=== PATIENT | male | born 1965 | race Caucasian/White ===

== ENCOUNTER 2019-01-12 11:33 | Inpatient (IN) | payer OTHER ==
[2019-01-12 14:38] VITALS: BMI 35.5
--- NOTE | 2019-01-12 16:13 | HP ---
CIWA Score - Admission Criteria [facility]ASAS Guidelines: Admission for Medically Managed Detox: Requires at least one of the followin. CIWA greater than 12 2. Seizures within the past 24 hours 3. Delirium tremens within the past 24 hours 4. Hallucinations within the past 24 hours 5. Acute intervention needed for co occurring medical disorder 6. Acute intervention needed for co occurring psychiatric disorder 7. Severe withdrawal that cannot be handled at a lower level of care (continued vomiting, continued diarrhea, abnormal vital signs) requiring intravenous medication and/or fluids 8. Admission ROS S - HPI Chief Complaint: Presents for rehab services for PCP dependence. Allergies/Adverse Reactions: Allergies Allergy/AdvReac Type Severity Reaction Status Date / Time No Known Allergies Allergy Verified 01/12/19 14:20 History of Present Illness: Patient presents for rehab for PCP dependence. Patient discharge from [facility] today after being admitted on 01/02/19 for hearing voices and suicidal/ homicidal ideation. Patient states he started smoking PCP at age 12. Patient states he smoked up to 3 cigarettes daily and last time he smoked was 01/01/19. Patient drinks socially but denies drinking on a daily basis. Patient reports history of seizures after taking haldol and thorazine and blackouts. Patient denies hx of overdose. PMH includes tobacco dependence and schizophrenia. Denies SI/HI at this time. Exam Limitations: No Limitations - Ebola screening Have you traveled outside of the country in the last 21 days: No (N) Have you had contact with anyone from an Ebola affected area: No Have you been sick,other than usual withdrawal symptoms: No Do you have a fever: No - Review of Systems Constitutional: Changes in sleep EENT: reports: No Symptoms Reported Respiratory: reports: No Symptoms reported Cardiac: reports: No Symptoms Reported GI: reports: No Symptoms Reported : reports: No Symptoms Reported Musculoskeletal: reports: No Symptoms Reported Integumentary: reports: No Symptoms Reported Neuro: reports: No Symptoms reported Endocrine: reports: No Symptoms Reported Hematology: reports: No Symptoms Reported Psychiatric: reports: Orientated x3, Anxious Patient History - Patient Medical History Hx Anemia: No Hx Asthma: No Hx Chronic Obstructive Pulmonary Disease (COPD): No Hx Cancer: No Hx Cardiac Disorders: No Hx Congestive Heart Failure: No Hx Hypertension: No Hx Hypercholesterolemia: No Hx Pacemaker: No HX Cerebrovascular Accident: No Hx Seizures: No Hx Dementia: No Hx Diabetes: No Hx Gastrointestinal Disorders: No Hx Liver Disease: No Hx Genitourinary Disorders: No Hx Sexually Transmitted Disorders: No Hx Renal Disease (ESRD): No Hx Thyroid Disease: No Hx Human Immunodeficiency Virus (HIV): No Hx Hepatitis C: No Hx Depression: No Hx Suicide Attempt: Yes (1995-jumped [place] bridge) Hx Bipolar Disorder: No Hx Schizophrenia: Yes - Patient Surgical History Past Surgical History: Yes Hx Neurologic Surgery: No Hx Cataract Extraction: No Hx Cardiac Surgery: No Hx Lung Surgery: No Hx Breast Surgery: No Hx Breast Biopsy: No Hx Abdominal Surgery: Yes (hernia surgery) Hx Appendectomy: No Hx Cholecystectomy: No Hx Genitourinary Surgery: No Hx Orthopedic Surgery: No Anesthesia Reaction: No - PPD History Previous Implant?: Yes Documented Results: Negative w/o proof PPD to be Administered?: Yes - Smoking Cessation Smoking history: Current every day smoker Have you smoked in the past 12 months: Yes Aproximately how many cigarettes per day: 40 Hx Chewing Tobacco Use: No Initiated information on smoking cessation: Yes 'Breaking Loose' booklet given: 01/12/19 - Substance & Tx. History Hx Alcohol Use: No Hx Substance Use: Yes Hx Substance Use Treatment: Yes (in [place], [place]) - Substances abused PCP Substance route: Smoking Frequency: Daily Amount used: 30/day Age of first use: 12 Date of last use: 12/12/18 Family Disease History - Family Disease History Family Disease History: Other: Mother (dementia, alive), Sister (mental illness) Admission Physical Exam [facility] - Vital Signs Vital Signs: Vital Signs - 24 hr 01/12/19 01/12/19 14:25 15:49 Temperature 97.7 F 97.7 F Pulse Rate 16 L 16 L Respiratory 16 16 Rate Blood Pressure 154/92 154/92 - Physical General Appearance: Yes: No Apparent Distress, Nourished, Appropriately Dressed , Anxious HEENTM: Yes: EOMI, Hearing grossly Normal, Normal ENT Inspection, Normocephalic , Normal Voice, ANDREA, Pharynx Normal Respiratory: Yes: Chest Non-Tender, Lungs Clear, Normal Breath Sounds, No Respiratory Distress, No Accessory Muscle Use Neck: Yes: No masses,lesions,Nodules, Supple, Trachea in good position Breast: Yes: Breast Exam Deferred Cardiology: Yes: Regular Rhythm, Regular Rate, S1, S2 Abdominal: Yes: Normal Bowel Sounds, Non Tender, Soft Genitourinary: Yes: Within Normal Limits Back: Yes: Normal Inspection Musculoskeletal: Yes: full range of Motion, Gait Steady Extremities: Yes: Normal Capillary Refill, Normal Inspection, Normal Range of Motion, Non-Tender Neurological: Yes: trade clerk II-XII NML intact, Fully Oriented, Alert, Motor Strength 5/5, Normal Mood/Affect, Other (anxious) Integumentary: Yes: Normal Color, Dry, Warm Lymphatic: Yes: Within Normal Limits Cleared for Admission [facility] - Detox or Rehab Claeared for Rehab Admission: Yes Breathalyzer - Breathalyzer Breathalyzer: 0.019 Urine Drug Screen - Test Device Lot number: [id number] Expiration date: 09/28/20 - Control Is test valid?: Yes - Results Drug screen NEGATIVE: No Urine drug screen results: THC-Marijuana Inpatient Rehab Admission - Rehab Decision to Admit Inpatient rehab admission?: Yes - Initial Determination Are CD services needed?: Yes Free of communicable disease: Yes Not in need of hospitalization: No - Rehab Admission Criteria Previous failed treatment: Yes Poor recovery environment: Yes Comorbidities: Yes Lacks judgement: No Patient is meeting Inpatient Rehab admission criteria:: Yes
[2019-01-12] MEDS ORDERED: IBUPROFEN 400 MG TABLET (FP) PO PRN (16:29)
[2019-01-12] MEDS ORDERED: LOPERAMIDE HCL 2 MG CAPSULE PO PRN (16:29)
[2019-01-12] MEDS ORDERED: MAGNESIUM HYDROX 2400MG/30ML ORAL SUSPENSION 30 ML CUP PO PRN (16:29)
[2019-01-12] MEDS ORDERED: MENTHOL/PHENOL 1 EACH UD MM PRN (16:29)
[2019-01-12] MEDS ORDERED: hydrOXYzine PAMOATE 50 MG CAPSULE (FP) PO PRN (16:29)
[2019-01-12] MEDS ORDERED: P-EPHED 60MG/TRIPROLIDI 2.5MG TABLET PO PRN (16:29)
[2019-01-12] MEDS ORDERED: NICOTINE POLACRILEX 2 MG GUM BC PRN (16:29)
[2019-01-12] MEDS ORDERED: MAGNESIUM CITRATE 300 ML BOTTLE PO PRN (16:29)
[2019-01-12] MEDS ORDERED: MAG HYDROX/AL HYDROX/SIMETH 30 ML UNIT-DOSE CUP PO PRN (16:29)
[2019-01-12] MEDS ORDERED: guaiFENesin 200 MG/10 ML 10 ML UNIT-DOSE CUPS PO PRN (16:29)
[2019-01-12] MEDS ORDERED: TUBERCULIN PPD 5 TU/0.1ML VIAL ID ONE (17:37)
[2019-01-12] MEDS ORDERED: MELATONIN 5 MG TABLETS PO PRN (22:00)
[2019-01-12] MEDS ORDERED: OLANZapine 5 MG TABLET PO ONE (22:00)
[2019-01-12] MEDS: THIAMINE HCL 100 MG TABLET (FP) PO SCH (22:09)
[2019-01-13] MEDS: PRENATAL VITAMINS W/ FOLIC ACID TABLET (FP) PO SCH (09:25)
[2019-01-13] MEDS: NICOTINE 21 MG/24 HOURS TOPICAL PATCH TD SCH (09:25)
--- NOTE | 2019-01-13 10:37 | CONSULT ---
[facility] Psychiatric Consult - Data Date of interview: 01/13/19 Admission source: [facility] Identifying data: First contact with [facility] for this 53 y/o AA male, discharged from [facility] and referred for rehabilitative care addressing cannabis (K2) dependence co-morbid with Schizoaffective Disorder. Direct admission to [address] Patient is , a father of six, homeless, unemployed and supported on SSI benefits. Substance Abuse History: Discussed in this session. Mr Farfan admits to using marijuana (K2), phencyclidine and alcohol for many years. He reports the consumption of two beers + smoking marihuana prior to his assessment at [facility]. Details in current [facility] report as follws : Smoking history: Current every day smoker. Have you smoked in the past 12 months: Yes. Aproximately how many cigarettes per day: 40. Hx Chewing Tobacco Use: No. Initiated information on smoking cessation: Yes. 'Breaking Loose' booklet given: 01/12/19. - Substance & Tx. History. Hx Alcohol Use: No. Hx Substance Use: Yes. Hx Substance Use Treatment: Yes (in [place], [place]). - Substances abused. PCP. Substance route: Smoking. Frequency: Daily. Amount used: 30/day. Age of first use: 12. Date of last use: 12/12/18 Medical History: Patient endorses hypertension and a history of bronchial asthma. Reports allergy to haloperidol and thorazine. Psychiatric History: Patient admits to a history of multiple psychiatric hospitalizations since the onset of emotional disturbances during his adolescence (age 14-15). Mr Farfan is known to [facility] (8- 10 admissions from 2014 to 2016). He has just returned from [place], [place] to visit his ailing mother and, on 01/08/19, as per self-report, the patient used phencyclidine, developed acute behavioral dyscontrol + florid psychosis ( auditory hallucinations and persecutory delusions) which led to his admission to the psychiatric inpatient service at [facility]. Discharged on . Patient suscribes to a chronic history of non-adherence to psychiatric aftercare. He indicates that, in [place], he does not keep appointments with [employer] care providers and favors visits to emergency room settings at time of crisis. Discharge medications from [facility] consist of olanzapine 10 mg/hs + depakote 500 mg/bid. Patient indicates a past history of multiple suicide attempts (jumping off a bridge in 1995, swallowing razor blades at another time). States that 1995 was his most recent suicide attempt. Physical/Sexual Abuse/Trauma History: Patient denies history of abuse. Admits to being traumatized by his divorce and his six years of incarceration ( released in October 2008 as per own account). Not on parole or probation. Mr Farfan reports that he was charged with kidnapping (declines to elaborate on details). Additional Comment: Urine drug screen results: THC-Marijuana. Noted. Mental Status Exam - Mental Status Exam Alert and Oriented to: Time, Place, Person Cognitive Function: Good Patient Appearance: Well Groomed (obese, wearing eyeglasses and appearing his stated age) Mood: Nervous, Anxious, Expansive Affect: Labile Patient Behavior: Restless, Talkative, Cooperative Speech Pattern: Clear, Pressured, Tangential (at times) Voice Loudness: Normal Thought Process: Circumstantial, Loose Associations, Disorganized Thought Disorder: Present, Paranoid Ideation, Bizarre Hallucinations: Denies Suicidal Ideation: Denies Homicidal Ideation: Denies Insight/Judgement: Poor Sleep: Fair Appetite: Good Muscle strength/Tone: Normal Gait/Station: Normal Psychiatric Findings - Problem List ([place] 1, 2,3) (1) Alcohol abuse Current Visit: Yes Status: Chronic (2) PCP dependence Current Visit: Yes Status: Chronic (3) Cannabis dependence Current Visit: Yes Status: Chronic (4) Nicotine dependence Current Visit: Yes Status: Acute (5) Substance induced mood disorder Current Visit: Yes Status: Chronic (6) Schizoaffective disorder Current Visit: Yes Status: Chronic Comment: As per history and referral papers from [facility]. (7) Non-compliance Current Visit: Yes Status: Chronic - Initial Treatment Plan Initial Treatment Plan: Notes from [facility] revisited. Medical TRAM INSPECTOR Lam Siegel's note is appreciated. Case presented by FILIPPO Cardenas. Patient evaluated. Therapeutic alliance established with the patient. Sleep hygiene. Mr Farfan vehemently DENIES hallucinations, suicidal/homicidal ideation, intent or plan. " I need my medications as soon as possible. I cannot be without my zyprexa and my cogentin. I don't want depakote now." Support. Motivational counseling for adherence to treatment. AA meetings. Address the patient's immediate social concerns (worries about his mother + concerns about benefits). Medications resumed as : zyprexa 5 mg po bid (patient's specific request) + cogentin 0.5 mg po bid. Side effects/benefits of both drugs are discussed in this session. Depakote will be added after further discussion with patient for acceptance of that drug. In the meantime, Mr Farfan has given his verbal consent to resume olanzapine and benztropine mesylate. Valproic acid level is requested. Will follow. Observation.
[2019-01-13] MEDS ORDERED: OLANZapine 2.5 MG TABLET PO SCH (10:45)
[2019-01-13] MEDS: OLANZapine 5 MG TABLET PO SCH ×2 (11:04→21:06)
[2019-01-13] MEDS: BENZTROPINE MESYLATE 1 MG TABLET (FP) PO SCH ×2 (11:05→21:06)
[2019-01-13 11:06] LABS: URINE APPEARANCE CLEAR; URINE BILIRUBIN NEGATIVE (NEGATIVE); URINE COLOR YELLOW; URINE GLUCOSE (UA) NEGATIVE (NEGATIVE); URINE KETONE NEGATIVE (NEGATIVE); URINE LEUK ESTERASE NEGATIVE (NEGATIVE); URINE NITRITE NEGATIVE (NEGATIVE); URINE PROTEIN NEGATIVE (NEGATIVE); URINE UROBILINOGEN 0.2 mg/dL (0.2-1.0)
[2019-01-13] MEDS: THIAMINE HCL 100 MG TABLET (FP) PO SCH (21:06)
[2019-01-14] MEDS: PRENATAL VITAMINS W/ FOLIC ACID TABLET (FP) PO SCH (09:34)
[2019-01-14] MEDS: NICOTINE 21 MG/24 HOURS TOPICAL PATCH TD SCH (09:34)
[2019-01-14] MEDS: OLANZapine 5 MG TABLET PO SCH ×2 (09:34→21:46)
[2019-01-14] MEDS: BENZTROPINE MESYLATE 1 MG TABLET (FP) PO SCH ×2 (09:35→21:46)
--- NOTE | 2019-01-14 16:57 | EKG ---
Test Reason : Blood Pressure : / mmHG Vent. Rate : 085 BPM Atrial Rate : 085 BPM P-R Int : 122 ms QRS Dur : 090 ms QT Int : 360 ms P-R-T Axes : 064 050 -01 degrees QTc Int : 428 ms NORMAL SINUS RHYTHM MINIMAL VOLTAGE CRITERIA FOR LVH, MAY BE NORMAL VARIANT Inferior ST and T abnormalities, suggestive of ischemia. Abnormal ECG NO PREVIOUS ECGS AVAILABLE Confirmed by MD SANJUANITA, CALEB ([id number]) on 01/14/2019 4:57:03 PM Referred By: Confirmed By:CALEB GANN MD
[2019-01-14] MEDS: THIAMINE HCL 100 MG TABLET (FP) PO SCH (21:45)
[2019-01-15] MEDS: PRENATAL VITAMINS W/ FOLIC ACID TABLET (FP) PO SCH (09:55)
[2019-01-15] MEDS: NICOTINE 21 MG/24 HOURS TOPICAL PATCH TD SCH (09:55)
[2019-01-15] MEDS: OLANZapine 5 MG TABLET PO SCH ×2 (09:55→22:03)
[2019-01-15] MEDS: BENZTROPINE MESYLATE 1 MG TABLET (FP) PO SCH ×2 (09:56→22:06)
--- NOTE | 2019-01-15 11:31 | PN ---
S Progress Note Note: PATIENT C/O ITCHING TO LEFT INNER THIGH FROM OLD MOSQUITO BITE. DENIES ANY PAIN TO AREA. Vital Signs Temperature 97.8 F 01/15/19 07:01 Pulse Rate 74 01/15/19 07:01 Respiratory Rate 18 01/15/19 07:01 Blood Pressure 131/66 01/15/19 07:01 O2 Sat by Pulse Oximetry (%) PE: ALERT AND ORIENTED X 3 SKIN WARM AND DRY + LEFT INNER THIGH/KNEE AREA WITH RESOLVING MOSQUITO BITE. MILD REDNESS OR AREA NOTED DUE TO SCRATCHING A/P: PRURITIS RESOLVING MOSQUITO BITE WILL ORDER HYTONE CR BID X 7 DAYS MONITOR CLINICALLY
[2019-01-15] MEDS: HYDROCORTISONE 0.5% TOPICAL CREAM 30 GM TUBE TP SCH ×2 (12:02→22:06)
[2019-01-15 14:44] LABS: ALBUMIN 3.6 g/dl (3.4-5.0); BILIRUBIN,TOTAL 0.2 mg/dL (0.2-1); BLOOD UREA NITROGEN 11.8 mg/dL (7-18); CALCIUM 9.1 mg/dL (8.5-10.1); POTASSIUM 4.2 mmol/L (3.5-5.1); TOT PROT 6.6 g/dl (6.4-8.2)
[2019-01-15 14:48] LABS: BASO % 0.4 % (0-2.0); EOS % 2.1 % (0-4.5); HEMATOCRIT 40.9 % (35.4-49); HEMOGLOBIN 13.9 GM/dL (11.7-16.9); MCH 30.3 pg (25.7-33.7); MCHC 34.1 g/dl (32.0-35.9); MEAN CELL VOLUME 88.9 fl (80-96); MEAN PLT VOLUME 9.5 fl (7.5-11.1); MONO % 8.7 % (3.8-10.2); NEUT % 67.8 % (42.8-82.8); RDW 12.8 % (11.9-15.9); WHITE BLOOD COUNT 9.1 K/mm3 (4.0-10.0)
[2019-01-15 15:01] LABS: PLATELET COUNT 167 K/MM3 (134-434)
[2019-01-15] MEDS: THIAMINE HCL 100 MG TABLET (FP) PO SCH (22:06)
[2019-01-16] MEDS: BENZTROPINE MESYLATE 1 MG TABLET (FP) PO SCH ×2 (09:49→21:11)
[2019-01-16] MEDS: OLANZapine 5 MG TABLET PO SCH ×2 (09:49→21:10)
[2019-01-16] MEDS: NICOTINE 21 MG/24 HOURS TOPICAL PATCH TD SCH (09:49)
[2019-01-16] MEDS: HYDROCORTISONE 0.5% TOPICAL CREAM 30 GM TUBE TP SCH ×2 (09:50→21:10)
[2019-01-16] MEDS: PRENATAL VITAMINS W/ FOLIC ACID TABLET (FP) PO SCH (09:50)
[2019-01-16] MEDS: ACETAMINOPHEN 325 MG TABLET (FP) PO PRN (10:57)
[2019-01-16] MEDS: THIAMINE HCL 100 MG TABLET (FP) PO SCH (21:11)
[2019-01-17] MEDS: OLANZapine 5 MG TABLET PO SCH ×2 (10:27→21:48)
[2019-01-17] MEDS: HYDROCORTISONE 0.5% TOPICAL CREAM 30 GM TUBE TP SCH ×2 (10:27→21:50)
[2019-01-17] MEDS: PRENATAL VITAMINS W/ FOLIC ACID TABLET (FP) PO SCH (10:27)
[2019-01-17] MEDS: NICOTINE 21 MG/24 HOURS TOPICAL PATCH TD SCH (10:28)
[2019-01-17] MEDS: BENZTROPINE MESYLATE 1 MG TABLET (FP) PO SCH ×2 (10:28→21:50)
[2019-01-17] MEDS ORDERED: PT OWN MED DRAWER 7, Y5N ONE (10:32)
[2019-01-17] MEDS: THIAMINE HCL 100 MG TABLET (FP) PO SCH (21:50)
[2019-01-18] MEDS: OLANZapine 5 MG TABLET PO SCH ×2 (09:40→22:10)
[2019-01-18] MEDS: BENZTROPINE MESYLATE 1 MG TABLET (FP) PO SCH ×2 (09:40→22:11)
[2019-01-18] MEDS: NICOTINE 21 MG/24 HOURS TOPICAL PATCH TD SCH (09:40)
[2019-01-18] MEDS: HYDROCORTISONE 0.5% TOPICAL CREAM 30 GM TUBE TP SCH ×2 (09:41→22:12)
[2019-01-18] MEDS: PRENATAL VITAMINS W/ FOLIC ACID TABLET (FP) PO SCH (10:29)
[2019-01-18] MEDS: THIAMINE HCL 100 MG TABLET (FP) PO SCH (22:12)
[2019-01-19] MEDS: BENZTROPINE MESYLATE 1 MG TABLET (FP) PO SCH ×2 (10:05→21:54)
[2019-01-19] MEDS: OLANZapine 5 MG TABLET PO SCH ×2 (10:05→21:54)
[2019-01-19] MEDS: HYDROCORTISONE 0.5% TOPICAL CREAM 30 GM TUBE TP SCH ×2 (10:05→22:06)
[2019-01-19] MEDS: NICOTINE 21 MG/24 HOURS TOPICAL PATCH TD SCH (10:05)
[2019-01-19] MEDS: PRENATAL VITAMINS W/ FOLIC ACID TABLET (FP) PO SCH (10:06)
--- NOTE | 2019-01-19 18:05 | PN ---
[facility] Progress Note Note: Psychiatry Attending's note : Labs reviewed. VA level = 3.7 (non-adherence)
[2019-01-19] MEDS: THIAMINE HCL 100 MG TABLET (FP) PO SCH (21:54)
[2019-01-19] MEDS: COLLOIDAL OATMEAL 1 BAR EACH TP PRN (21:56)
[2019-01-20] MEDS: OLANZapine 5 MG TABLET PO SCH ×2 (09:49→21:51)
[2019-01-20] MEDS: HYDROCORTISONE 0.5% TOPICAL CREAM 30 GM TUBE TP SCH ×2 (09:50→21:51)
[2019-01-20] MEDS: NICOTINE 21 MG/24 HOURS TOPICAL PATCH TD SCH (09:50)
[2019-01-20] MEDS: PRENATAL VITAMINS W/ FOLIC ACID TABLET (FP) PO SCH (09:50)
[2019-01-20] MEDS: BENZTROPINE MESYLATE 1 MG TABLET (FP) PO SCH ×2 (09:50→21:51)
[2019-01-20] MEDS: THIAMINE HCL 100 MG TABLET (FP) PO SCH (21:51)
[2019-01-21] MEDS: OLANZapine 5 MG TABLET PO SCH ×2 (09:54→21:14)
[2019-01-21] MEDS: BENZTROPINE MESYLATE 1 MG TABLET (FP) PO SCH ×2 (09:54→21:15)
[2019-01-21] MEDS: PRENATAL VITAMINS W/ FOLIC ACID TABLET (FP) PO SCH (09:54)
[2019-01-21] MEDS: NICOTINE 21 MG/24 HOURS TOPICAL PATCH TD SCH (09:54)
[2019-01-21] MEDS: HYDROCORTISONE 0.5% TOPICAL CREAM 30 GM TUBE TP SCH ×2 (09:54→21:15)
[2019-01-21] MEDS: THIAMINE HCL 100 MG TABLET (FP) PO SCH (21:14)
[2019-01-22] MEDS: OLANZapine 5 MG TABLET PO SCH ×2 (10:24→21:49)
[2019-01-22] MEDS: BENZTROPINE MESYLATE 1 MG TABLET (FP) PO SCH ×2 (10:25→21:50)
[2019-01-22] MEDS: PRENATAL VITAMINS W/ FOLIC ACID TABLET (FP) PO SCH (10:25)
[2019-01-22] MEDS: NICOTINE 21 MG/24 HOURS TOPICAL PATCH TD SCH (10:25)
[2019-01-22] MEDS: HYDROCORTISONE 0.5% TOPICAL CREAM 30 GM TUBE TP SCH (10:25)
[2019-01-22] MEDS ORDERED: PT OWN MED DRAWER 7, Y5N ONE (10:42)
[2019-01-22] MEDS: THIAMINE HCL 100 MG TABLET (FP) PO SCH (21:49)
[2019-01-23] MEDS: NICOTINE 21 MG/24 HOURS TOPICAL PATCH TD SCH (09:22)
[2019-01-23] MEDS: BENZTROPINE MESYLATE 1 MG TABLET (FP) PO SCH ×2 (09:22→21:05)
[2019-01-23] MEDS: PRENATAL VITAMINS W/ FOLIC ACID TABLET (FP) PO SCH (09:22)
[2019-01-23] MEDS: OLANZapine 5 MG TABLET PO SCH ×2 (09:22→21:05)
[2019-01-23] MEDS: ACETAMINOPHEN 325 MG TABLET (FP) PO PRN (21:06)
[2019-01-23] MEDS: THIAMINE HCL 100 MG TABLET (FP) PO SCH (21:08)
[2019-01-24] MEDS: OLANZapine 5 MG TABLET PO SCH ×2 (10:01→22:00)
[2019-01-24] MEDS: NICOTINE 21 MG/24 HOURS TOPICAL PATCH TD SCH (10:01)
[2019-01-24] MEDS: PRENATAL VITAMINS W/ FOLIC ACID TABLET (FP) PO SCH (10:02)
[2019-01-24] MEDS: BENZTROPINE MESYLATE 1 MG TABLET (FP) PO SCH ×2 (10:02→22:01)
[2019-01-24] MEDS: THIAMINE HCL 100 MG TABLET (FP) PO SCH (22:01)
[2019-01-25] MEDS: PRENATAL VITAMINS W/ FOLIC ACID TABLET (FP) PO SCH (10:25)
[2019-01-25] MEDS: OLANZapine 5 MG TABLET PO SCH ×2 (10:25→21:42)
[2019-01-25] MEDS: NICOTINE 21 MG/24 HOURS TOPICAL PATCH TD SCH (10:25)
[2019-01-25] MEDS: BENZTROPINE MESYLATE 1 MG TABLET (FP) PO SCH ×2 (10:25→21:43)
[2019-01-25] MEDS: THIAMINE HCL 100 MG TABLET (FP) PO SCH (21:43)
[2019-01-26] MEDS: PRENATAL VITAMINS W/ FOLIC ACID TABLET (FP) PO SCH (09:54)
[2019-01-26] MEDS: OLANZapine 5 MG TABLET PO SCH ×2 (09:54→21:06)
[2019-01-26] MEDS: NICOTINE 21 MG/24 HOURS TOPICAL PATCH TD SCH (09:55)
[2019-01-26] MEDS: BENZTROPINE MESYLATE 1 MG TABLET (FP) PO SCH ×2 (09:55→21:07)
[2019-01-26] MEDS: THIAMINE HCL 100 MG TABLET (FP) PO SCH (21:07)
[2019-01-27] MEDS: OLANZapine 5 MG TABLET PO SCH ×2 (10:00→22:11)
[2019-01-27] MEDS: PRENATAL VITAMINS W/ FOLIC ACID TABLET (FP) PO SCH (10:00)
[2019-01-27] MEDS: NICOTINE 21 MG/24 HOURS TOPICAL PATCH TD SCH (10:00)
[2019-01-27] MEDS: BENZTROPINE MESYLATE 1 MG TABLET (FP) PO SCH ×2 (10:01→22:11)
[2019-01-27] MEDS: THIAMINE HCL 100 MG TABLET (FP) PO SCH (22:13)
[2019-01-27] MEDS: COLLOIDAL OATMEAL 1 BAR EACH TP PRN (22:42)
[2019-01-28] MEDS ORDERED: PT OWN MED DRAWER 7, Y5N ONE (09:55)
[2019-01-28] MEDS: OLANZapine 5 MG TABLET PO SCH ×2 (10:35→21:13)
[2019-01-28] MEDS: PRENATAL VITAMINS W/ FOLIC ACID TABLET (FP) PO SCH (10:35)
[2019-01-28] MEDS: BENZTROPINE MESYLATE 1 MG TABLET (FP) PO SCH ×2 (10:35→21:13)
[2019-01-28] MEDS: NICOTINE 21 MG/24 HOURS TOPICAL PATCH TD SCH (10:35)
[2019-01-28] MEDS: THIAMINE HCL 100 MG TABLET (FP) PO SCH (21:13)
[2019-01-29 07:04] VITALS: BP 122/82; PULSE 77; TEMP 97.8
[2019-01-29] MEDS: OLANZapine 5 MG TABLET PO SCH (10:13)
[2019-01-29] MEDS: BENZTROPINE MESYLATE 1 MG TABLET (FP) PO SCH (10:13)
[2019-01-29] MEDS: NICOTINE 21 MG/24 HOURS TOPICAL PATCH TD SCH (10:13)
[2019-01-29] MEDS: PRENATAL VITAMINS W/ FOLIC ACID TABLET (FP) PO SCH (10:13)
--- NOTE | 2019-01-29 16:08 | PN ---
[facility] Progress Note Note: PATIENT REQUESTED EARLY DISCHARGE FROM REHAB TODAY DUE TO FAMILY ISSUES. PATIENT STATES HE ACCOMPLISHED ALL REHAB GOALS AND FEELS LIKE HE WILL BE ABLE TO MAINTAIN SOBRIETY ON HIS OWN. PATIENT IS MEDICALLY STABLE AND DENIES SI/HI. PATIENT ENCOURAGED TO ATTEND GROUP MEETINGS AA/NA TO PREVENT RELAPSE AND TO FOLLOW UP WITH PRIMARY CARE PROVIDER/PSYCH WITHING 48-72 HOURS OF DISCHARGE TO CONTINUE MEDICAL MANAGEMENT. Vital Signs Temperature 97.8 F 01/29/19 07:03 Pulse Rate 77 01/29/19 07:03 Respiratory Rate 18 01/29/19 07:03 Blood Pressure 122/82 01/29/19 07:03 O2 Sat by Pulse Oximetry (%) Laboratory Tests 01/13/19 01/15/19 01/15/19 09:00 10:45 10:45 WBC 9.1 RBC 4.60 Hgb 13.9 Hct 40.9 MCV 88.9 MCH 30.3 MCHC 34.1 RDW 12.8 Plt Count 167 MPV 9.5 Absolute Neuts (auto) 6.2 Neutrophils % 67.8 Lymphocytes % 21.0 Monocytes % 8.7 Eosinophils % 2.1 Basophils % 0.4 Nucleated RBC % 0 Sodium 140 Potassium 4.2 Chloride 108 H Carbon Dioxide 26 Anion Gap 6 L BUN 11.8 Creatinine 1.0 Est GFR (CKD-EPI)AfAm 99.85 Est GFR (CKD-EPI)NonAf 86.15 Random Glucose 121 H Calcium 9.1 Total Bilirubin 0.2 AST 17 ALT 65 H Alkaline Phosphatase 67 Total Protein 6.6 Albumin 3.6 Urine Color Yellow Urine Appearance Clear Urine pH 6.0 Ur Specific [place] 1.017 Urine Protein Negative Urine Glucose (UA) Negative Urine Ketones Negative Urine Blood Negative Urine Nitrite Negative Urine Bilirubin Negative Urine Urobilinogen 0.2 Ur Leukocyte Esterase Negative Valproic Acid RPR Titer HIV 1&2 Antibody Screen HIV P24 Antigen 01/15/19 01/15/19 01/15/19 10:45 10:45 10:45 WBC RBC Hgb Hct MCV MCH MCHC RDW Plt Count MPV Absolute Neuts (auto) Neutrophils % Lymphocytes % Monocytes % Eosinophils % Basophils % Nucleated RBC % Sodium Potassium Chloride Carbon Dioxide Anion Gap BUN Creatinine Est GFR (CKD-EPI)AfAm Est GFR (CKD-EPI)NonAf Random Glucose Calcium Total Bilirubin AST ALT Alkaline Phosphatase Total Protein Albumin Urine Color Urine Appearance Urine pH Ur Specific [place] Urine Protein Urine Glucose (UA) Urine Ketones Urine Blood Urine Nitrite Urine Bilirubin Urine Urobilinogen Ur Leukocyte Esterase Valproic Acid 3.7 L RPR Titer Nonreactive HIV 1&2 Antibody Screen Negative HIV P24 Antigen Negative Ambulatory Orders Benztropine Mesylate [Cogentin -] 1 mg PO DAILY 01/12/19 Olanzapine [Zyprexa] 01/12/19
--- NOTE | 2019-01-29 16:14 | PN ---
[facility] Progress Note Note: Psychiatry Attending's note : Nurse called for prescriptions. Mr Farfan has decided to leave the program. Zyprexa 10 mg po hs tab # 30 Cogentin 0.5 mg po daily tab # 30 Scripts sent electronically to [facility].
== END 2019-01-29 17:40 | disposition home or self-care (01) | DRG 895 ==
LOC: YASAS 11:33 → Y3W 16:54
PROVIDERS: ADMIT Neuromusculoskeletal Medicine & OMM; ATTEND Neuromusculoskeletal Medicine & OMM
PROC: HZ42ZZZ Group Counseling for Substance Abuse Treatment, Cognitive-Behavioral (ICD-10-PCS; principal; 2019-01-12)
DX: F16.20 Hallucinogen dependence, uncomplicated (principal); F12.20 Cannabis dependence, uncomplicated; F10.10 Alcohol abuse, uncomplicated; F17.210 Nicotine dependence, cigarettes, uncomplicated; F25.9 Schizoaffective disorder, unspecified; F19.24 Other psychoactive substance dependence with psychoactive substance-induced mood disorder; L29.9 Pruritus, unspecified; I10 Essential (primary) hypertension; Z91.19 Patient's noncompliance with other medical treatment and regimen; Z88.0 Allergy status to penicillin; Z91.013 Allergy to seafood; Z91.5 Personal history of self-harm; Z59.0 Homelessness
CPT/HCPCS: 36415; 80053; 80164; 81003; 85025; 86593; 87389; 93005; 93010